=== PATIENT | male | born 1985 ===

== ENCOUNTER 2020-04-09 16:25 | Emergency (ER) | payer BC ==
--- NOTE | 2020-04-09 16:32 | Event Note ---
ED Screening Note ED Screening Note: COVID POS CO SOB This initial assessment/diagnostic orders/clinical plan/treatment(s) is/are subject to change based on patients health status, clinical progression and re- assessment by fellow clinical providers in the ED. Further treatment and workup at subsequent clinical providers discretion. Patient/guardian urged not to elope from the ED as their condition may be serious if not clinically assessed and managed. Initial orders include: XR RO COVID PNA
--- NOTE | 2020-04-09 16:56 | XRay Report ---
CHEST 2 VIEWS INDICATION / CLINICAL INFORMATION: Shortness of breath. COMPARISON: None available. FINDINGS: SUPPORT DEVICES: None. HEART / MEDIASTINUM: No significant abnormality. LUNGS / PLEURA: There are patchy opacities in both lower lungs. No pneumothorax. ADDITIONAL FINDINGS: No significant additional findings. IMPRESSION: 1. Patchy pulmonary opacities in both lower lungs that could indicate developing pneumonia. Signer Name: Daniel Yarbrough MD Signed: 04/09/2020 4:51 PM Workstation Name: [id number]
[2020-04-09 17:29] LABS: Basophils % (Auto) 0.4 % (0.0-1.8); Hemoglobin 15.4 gm/dl (11.8-15.2); Lymphocytes # (Auto) 0.9 K/mm3 (1.2-5.4); Mean Corpuscular HGB Conc 34 % (32-34); Mean Corpuscular Volume 89 fl (84-94); Monocytes # (Auto) 0.5 K/mm3 (0.0-0.8); Monocytes % (Auto) 8.4 % (0.0-7.3); Platelet Count 172 K/mm3 (140-440); Red Cell Distribution Width 13.7 % (13.2-15.2)
[2020-04-09 17:48] LABS: Alanine Aminotransferase 35 units/L (7-56); BUN/Creatinine Ratio 8; Blood Urea Nitrogen 9 mg/dL (9-20); Hemolysis Index 1
--- NOTE | 2020-04-09 19:30 | Emergency Department Report ---
ED General Adult HPI - General Chief complaint: Dyspnea/Respdistress Stated complaint: COVID POSITIVE/BREATHING PROBLEM Time Seen by Provider: 04/09/20 16:31 Source: patient Mode of arrival: Ambulatory Limitations: No Limitations - History of Present Illness Initial comments: The patient was evaluated in the emergency department for symptoms described in the history of present illness. He/she was evaluated in the context of the global COVID-19 pandemic, which necessitated consideration that the patient might be at risk for infection with the virus that causes COVID-19. Institutional protocols and algorithms that pertain to the evaluation of cosmo ents at risk for COVID-19 are in a state of rapid change based on information released by regulatory bodies including the CDC and federal and state organizations. These policies and algorithms were followed during the patient's care in the emergency department. Please note that these policies, procedures and recommendations changed on a rapid basis. 34-year-old morbid obese -[place] male who tested positive for Covid last Monday presents to the emergency room states that when he takes a deep breath he gets cold air coming into his lungs. Patient admits to fever and chills. He states that he had lost his sense of smell and taste but just returned today. Patient does admit to nasal congestion no longer has a headache no longer has shortness of breath or chest pain. Appetite is good. Patient reports has been taken Tylenol and ibuprofen for his fever and body aches. He denies any past medical history. Onset/Timin -: week(s) Location: chest Consistency: intermittent Worsens with: other (Deep breath) Associated Symptoms: fever/chills. denies: cough, headaches, loss of appetite, malaise, nausea/vomiting, shortness of breath, weakness Treatments Prior to Arrival: NSAID, other (Tylenol, Robitussin) - Related Data Previous Rx's Medication Instructions Recorded Last Taken Type Azithromycin [Zithromax Z-TULIO] 250 mg PO DAILY #6 tab 04/09/20 Unknown Rx Allergies Allergy/AdvReac Type Severity Reaction Status Date / Time No Known Allergies Allergy Unverified 04/09/20 16:32 ED Review of Systems ROS: Stated complaint: COVID POSITIVE/BREATHING PROBLEM Other details as noted in HPI ED Past Medical Hx - Past Medical History Previous Medical History?: No - Surgical History Past Surgical History?: No - Medications Home Medications: Home Medications Medication Instructions Recorded Confirmed Last Taken Type Azithromycin [Zithromax Z-TULIO] 250 mg PO DAILY #6 tab 04/09/20 Unknown Rx ED Physical Exam - General Limitations: No Limitations ED Course Vital Signs 04/09/20 04/09/20 16:33 19:35 Temperature 100.3 F H Pulse Rate 111 H 91 H Respiratory 20 16 Rate Blood Pressure 157/82 Blood Pressure 155/73 [Right] O2 Sat by Pulse 93 99 Oximetry ED Medical Decision Making - Lab Data Result diagrams: 04/09/20 17:08 04/09/20 17:08 - Medical Decision Making 34-year-old morbid obese -[place] male who tested positive for Covid last Monday presents to the emergency room states that when he takes a deep breath he gets cold air coming into his lungs. Patient admits to fever and chills. He states that he had lost his sense of smell and taste but just returned today. Patient does admit to nasal congestion no longer has a headache no longer has shortness of breath or chest pain. Appetite is good. Patient reports has been taken Tylenol and ibuprofen for his fever and body aches. He denies any past medical history. Chest x-ray shows bilateral opacities Ambulatory saturation of oxygen is 93%. Critical care attestation.: If time is entered above; I have spent that time in minutes in the direct care of this critically ill patient, excluding procedure time. ED Disposition Clinical Impression: Pneumonia due to 2019 novel coronavirus Disposition: DC-01 TO HOME OR SELFCARE Is pt being admited?: No Does the pt Need Aspirin: No Condition: Stable Instructions: COVID-19 Frequently Asked Questions, COVID-19: How to Protect Yourself and Others - CDC, Bacterial Pneumonia (ED) Additional Instructions: Recommend to complete antibiotics. Try taking zinc daily vitamin C probiotics drink at least a gallon of water a day and rest. Continue with quarantine until you have 3 days with no fever. Follow-up with a primary care provider. Prescriptions: Azithromycin [Zithromax Z-TULIO] 250 mg PO DAILY #6 tab Referrals: PRIMARY CAREMD [Primary Care Provider] - 3-5 Days MARLY CAIN MD [Staff Physician] - 3-5 Days Forms: Work/School Release Form(ED)
[2020-04-09 19:43] VITALS: BP 155/73
== END 2020-04-09 20:16 | disposition home or self-care (01) ==
LOC: ED 16:25
DX: U07.1 COVID-19 (principal); J12.89 Other viral pneumonia; Z79.2 Long term (current) use of antibiotics
CPT/HCPCS: 36415; 71046; 80053; 82140; 85025